=== PATIENT | male | born 1990 | race Two or more races ===

== ENCOUNTER → 2025-07-14 | Outpatient (CLI) | payer BC, SELFPAY ==
--- NOTE | 2025-07-14 16:00 | XR_ITS ---
Examination: Carotid arterial duplex scan, ultrasound. Date and time of exam: July 14, 2025, 1611 hours INDICATIONS: Dizziness episodes 1 year with headaches Technique: Multiple sonographic images have been obtained of the carotid arteries and vertebral arteries, B-mode/grayscale imaging and Doppler spectral analysis and color flow Peak systolic and diastolic velocities have been recorded. Systolic diastolic ratios have been calculated. Findings: Right peak systolic velocities: Distal internal carotid artery peak systolic velocity is 0.7 M/sec Proximal internal carotid artery peak systolic velocity is 0.7 M/sec Carotid bifurcation peak systolic velocity is 1.3 M/sec External carotid artery peak systolic velocity is 1.0 M/sec Vertebral artery flow is antegrade. Left peak systolic velocities: Distal internal carotid artery peak systolic velocity is 0.5 M/sec Proximal internal carotid artery peak systolic velocity is 0.5 M/sec Carotid bifurcation peak systolic velocity is 1.3 M/sec External carotid artery peak systolic velocity is 0.6 M/sec Vertebral artery flow is antegrade Doppler waveform analysis demonstrates no spectral broadening Impression: Right internal carotid artery demonstrates 0 to 10% stenosis. Left internal carotid artery demonstrates 0 to 10% stenosis.
== END | disposition home or self-care (01) ==
PROVIDERS: Referring Provider Physician Assistant Medical; Visit Provider Physician Assistant Medical
DX: Z13.6 Encounter for screening for cardiovascular disorders (principal)
CPT/HCPCS: 93880

== ENCOUNTER → 2025-08-14 | Outpatient (CLI) | payer BC, SELFPAY ==
--- NOTE | 2025-08-14 13:00 | XR_ITS ---
CT soft tissue neck wo/w con, 08/14/2025 2:01 PM CLINICAL INDICATION: Cervicalgia and trouble swallowing, intermittent for 2 years TECHNIQUE: Axial CT of the neck soft tissues was obtained with IV contrast. 50 mL of Isovue-370 was utilized without reported complication. Sagittal and coronal reformatted images were generated. COMPARISON: CT cervical spine 11/24/2019. FINDINGS: No cervical lymphadenopathy or other masses. Normal-appearing bilateral subcentimeter short axis lymph nodes are present. The airway is patent and the larynx is unremarkable. The epiglottis is normal in appearance. No significant change in several small chronic calcific foci in the right pharyngeal space and left peritonsillar/parapharyngeal space. No evidence for peritonsillar or retropharyngeal abscess. No evidence for inflammatory pharyngeal mucosal hypertrophy. The thyroid and major salivary glands are unremarkable. No recent fractures or suspicion osseous lesions are detected. No anterior cervical osteophytes. The imaged intracranial structures are unremarkable. Mucosal hypertrophy is present along the floor of the right maxillary sinus. The mandible and maxilla contain numerous dental cavities and periapical lucencies likely reflective of dental abscesses bilaterally. The imaged portions of the lungs show no significant findings. Partially imaged thymic tissue noted which could represent thymic rebound hyperplasia. IMPRESSION: No evidence for cervical lymphadenopathy or other neck mass. No acute inflammatory changes in the neck. The mandible and maxilla contain numerous dental cavities and periapical lucencies likely reflective of dental abscesses bilaterally.
== END | disposition home or self-care (01) ==
LOC: SCAT 13:15
PROVIDERS: PCP Physician Assistant Medical; Referring Provider Physician Assistant Medical; Visit Provider Physician Assistant Medical
DX: K02.9 Dental caries, unspecified (principal)
CPT/HCPCS: 70492; A4649; Q9967